=== PATIENT | female | born 1960 | race Caucasian/White ===

== ENCOUNTER → 2020-02-14 10:02 | Outpatient (CLI) | payer BC, SELFPAY ==
[2020-02-14 11:25] LABS: Add Manual Diff / Slide Review NO; Basophils Absolute Auto 100 /uL (0-100); Basophils Percent Auto 1.1 % (0-2); Eosinophils Absolute Auto 0 /uL (0-450); Eosinophils Percent Auto 0.7 % (2-4); Hemoglobin 15.6 g/dL (12.0-16.0); Lymphocytes Absolute Auto 1600 /uL (1100-4500); Lymphocytes Percent Auto 31.2 % (25-40); Mean Corpuscular HGB Conc 34.8 % (30-36); Mean Corpuscular Hemoglobin 31.3 PG (26-34); Mean Corpuscular Volume 90.1 fL (80-100); Monocytes Absolute Auto 400 /uL (0-900); Monocytes Percent Auto 8.1 % (3-14); Neutrophils Absolute Auto 3000 /uL (1500-7000); Neutrophils Percent Auto 58.9 % (50-75); Platelet Count 195 X10^3/uL (150-400); Red Blood Cell Count 4.99 X10^6/uL (4.0-5.2); Red Cell Distribution Width 12.9 % (11.6-14.8); White Blood Cell Count 5.1 X10^3/uL (4.5-11.0)
[2020-02-14 11:57] LABS: Alanine Aminotransferase 85 IU/L (<35); Albumin 4.6 g/dL (3.5-5.0); Albumin Globulin Ratio 1.4 (1.0-2.8); Alkaline Phosphatase 58 U/L (38-126); Aspartate Aminotransferase 72 IU/L (14-36); BUN Creatinine Ratio 31.5 (6-22); Bilirubin Total 0.9 mg/dL (0.2-1.3); Blood Urea Nitrogen 23 mg/dL (7-17); Calcium 10.4 mg/dL (8.4-10.2); Carbon Dioxide 29 mmol/L (22-32); Chloride 103 mmol/L (98-107); Cholesterol 113 mg/dL (140-199); Estimated Glomerular Filt Rate > 60.0 mL/min (>60); Globulin 3.3 g/dL (1.7-4.1); Glucose 95 mg/dL (80-110); HDL Cholesterol 54 mg/dL (40-60); HEMOLYSIS < 15 (0-50); LDL Cholesterol Calculated 51 mg/dL (<100); Potassium 3.9 mmol/L (3.4-5.1); Sodium 142 mmol/L (137-145); Total Protein 7.9 g/dL (6.3-8.2); Triglycerides 39 mg/dL (35-150)
== END ==
PROVIDERS: PCP Family Medicine; Referring Provider Family Medicine; Visit Provider Family Medicine
DX: E66.9 Obesity, unspecified (principal); I10 Essential (primary) hypertension; Z87.19 Personal history of other diseases of the digestive system; Z13.220 Encounter for screening for lipoid disorders
CPT/HCPCS: 36415; 80053; 80061; 84443; 85025

== ENCOUNTER → 2020-04-15 12:09 | Outpatient (CLI) | payer BC, SELFPAY ==
--- NOTE | 2020-04-15 12:10 | DI.MG.S_ITS ---
BILATERAL DIGITAL SCREENING MAMMOGRAM 3D/2D WITH CAD: 04/15/2020 CLINICAL: Routine screening. Family history of breast cancer. Comparison is made to exams dated: 06/09/2017 mammogram, 05/19/2016 mammogram, and 04/17/2015 mammogram - outside location. The tissue of both breasts is heterogeneously dense. This may lower the sensitivity of mammography. Current study was also evaluated with a Computer Aided Detection (CAD) system. No significant masses, calcifications, or other findings are seen in either breast. There has been no significant interval change. IMPRESSION: NEGATIVE There is no mammographic evidence of malignancy. A 1 year screening mammogram is recommended. This exam was interpreted at Station ID: [id number]. NOTE: For mammograms, a report in lay terms will be sent to the patient. Approximately 15% of breast malignancies will not be visualized mammographically. In the management of a palpable breast mass, a negative mammogram must not discourage biopsy of a clinically suspicious lesion. Electronically Signed By: Micah jurado/porfirio:04/15/2020 12:34:55 letter sent: Normal Exam ACR BI-RADS Category 1: Negative 3341F
== END ==
PROVIDERS: PCP Family Medicine; Referring Provider Family Medicine; Visit Provider Family Medicine
DX: Z12.31 Encounter for screening mammogram for malignant neoplasm of breast (principal); Z80.3 Family history of malignant neoplasm of breast
CPT/HCPCS: 77063; 77067

== ENCOUNTER → 2020-04-23 12:03 | Outpatient (CLI) | payer BC, SELFPAY ==
[2020-04-23 13:29] LABS: Alanine Aminotransferase 87 IU/L (<35); Albumin 4.6 g/dL (3.5-5.0); Albumin Globulin Ratio 1.5 (1.0-2.8); Alkaline Phosphatase 53 U/L (38-126); Aspartate Aminotransferase 72 IU/L (14-36); BUN Creatinine Ratio 24.7 (6-22); Bilirubin Total 0.9 mg/dL (0.2-1.3); Blood Urea Nitrogen 19 mg/dL (7-17); Calcium 10.3 mg/dL (8.4-10.2); Carbon Dioxide 32 mmol/L (22-32); Chloride 101 mmol/L (98-107); Estimated Glomerular Filt Rate > 60.0 mL/min (>60); Globulin 3.1 g/dL (1.7-4.1); Glucose 92 mg/dL (80-110); HEMOLYSIS < 15 (0-50); Potassium 4.3 mmol/L (3.4-5.1); Sodium 139 mmol/L (137-145); Total Protein 7.7 g/dL (6.3-8.2)
== END ==
PROVIDERS: PCP Family Medicine; Referring Provider Family Medicine; Visit Provider Family Medicine
DX: E83.52 Hypercalcemia (principal); R79.89 Other specified abnormal findings of blood chemistry; Z87.19 Personal history of other diseases of the digestive system
CPT/HCPCS: 36415; 80053

== ENCOUNTER → 2020-05-21 10:41 | Outpatient (CLI) | payer BC, SELFPAY ==
--- NOTE | 2020-05-21 10:42 | DI.US.S_ITS ---
PROCEDURE: US ABDOMEN LIMITED INDICATIONS: HISTORY OF LIVER CYSTS. ELEVATED LIVER ENZYMES TECHNIQUE: Real-time focused scanning was performed of the abdomen, with image documentation. COMPARISON: No prior relevant studies are available for review at the time of this dictation. FINDINGS: The liver demonstrates normal size. The liver demonstrates generalized increased echogenicity. This decreases ultrasound sensitivity for detection of hepatic masses. Multiple simple appearing hepatic cysts can be seen. The largest of these is seen within the right liver inferiorly measuring 6.4 x 5.3 x 7.2 cm. No abnormal vascularity can be seen involving these cysts. No findings of gallstones or sludge are seen. The gallbladder wall is not thickened, measuring 3 mm or less. No specific pericholecystic fluid is seen. The sonographic Ricks sign is negative. There is no biliary dilatation, the common bile duct measures 5 mm. No significant pancreatic abnormality is seen on these images. IMPRESSION: Simple appearing liver cysts are seen. No suspicious abnormality of the liver is seen by ultrasound. The liver demonstrates increased echogenicity. This finding is nonspecific, yet it is most commonly attributed to fatty infiltration. The gallbladder demonstrates a normal sonographic appearance. No biliary dilatation is seen. Dictated by: Donaldo Bright M.D. on 05/21/2020 at 11:04 Approved by: Donaldo Bright M.D. on 05/21/2020 at 11:05
== END ==
PROVIDERS: PCP Family Medicine; Referring Provider Family Medicine; Visit Provider Family Medicine
DX: K76.89 Other specified diseases of liver (principal); R74.8 Abnormal levels of other serum enzymes
CPT/HCPCS: 76705

== ENCOUNTER → 2021-05-14 10:56 | Outpatient (CLI) | payer BC, SELFPAY ==
--- NOTE | 2021-05-14 10:57 | DI.MG.S_ITS ---
BILATERAL DIGITAL SCREENING MAMMOGRAM 3D/2D WITH CAD: 05/14/2021 CLINICAL: Routine screening. Family history of breast cancer. Comparison is made to exams dated: 04/15/2020 mammogram - [facility], 06/09/2017 mammogram, and 05/19/2016 mammogram - outside location. The tissue of both breasts is heterogeneously dense. This may lower the sensitivity of mammography. Current study was also evaluated with a Computer Aided Detection (CAD) system. No significant masses, calcifications, or other findings are seen in either breast. There has been no significant interval change. IMPRESSION: NEGATIVE There is no mammographic evidence of malignancy. A 1 year screening mammogram is recommended. This exam was interpreted at Station ID: [id number]. NOTE: For mammograms, a report in lay terms will be sent to the patient. Approximately 15% of breast malignancies will not be visualized mammographically. In the management of a palpable breast mass, a negative mammogram must not discourage biopsy of a clinically suspicious lesion. Electronically Signed By: Lawson ocasio/porfirio:05/14/2021 13:09:53 letter sent: Normal Exam ACR BI-RADS Category 1: Negative 3341F
== END ==
PROVIDERS: PCP Family Medicine; Referring Provider Family Medicine; Visit Provider Family Medicine
DX: Z12.31 Encounter for screening mammogram for malignant neoplasm of breast (principal)
CPT/HCPCS: 77063; 77067

== ENCOUNTER → 2021-09-01 09:04 | Outpatient (CLI) | payer BC, SELFPAY ==
[2021-09-01 11:17] LABS: Alanine Aminotransferase 66 IU/L (<35); Albumin 4.2 g/dL (3.5-5.0); Albumin Globulin Ratio 1.4 (1.0-2.8); Alkaline Phosphatase 44 U/L (38-126); Aspartate Aminotransferase 44 IU/L (14-36); Bilirubin Total 0.4 mg/dL (0.2-1.3); Blood Urea Nitrogen 20 mg/dL (7-17); Calcium 9.8 mg/dL (8.4-10.2); Carbon Dioxide 29 mmol/L (22-32); Chloride 104 mmol/L (98-107); Cholesterol 111 mg/dL (140-199); Estimated Glomerular Filt Rate > 60.0 mL/min (>60); Glucose 94 mg/dL (80-110); HDL Cholesterol 59 mg/dL (40-60); HEMOLYSIS < 15 (0-50); LDL Cholesterol Calculated 43 mg/dL (<100); Potassium 4.1 mmol/L (3.4-5.1); Sodium 140 mmol/L (137-145); Total Protein 7.2 g/dL (6.3-8.2); Triglycerides 43 mg/dL (35-150)
[2021-09-01 11:35] LABS: TSH w/ Reflex to FT4 1.28 uIU/mL (0.47-4.68)
== END ==
PROVIDERS: PCP Family Medicine; Referring Provider Family Medicine; Visit Provider Family Medicine
DX: E66.9 Obesity, unspecified (principal); I10 Essential (primary) hypertension; Z87.19 Personal history of other diseases of the digestive system
CPT/HCPCS: 36415; 80053; 80061; 84443

== ENCOUNTER → 2021-09-07 13:53 | Outpatient (CLI) | payer BC, SELFPAY ==
--- NOTE | 2021-09-07 13:54 | DI.MG.S_ITS ---
UNILATERAL RIGHT DIGITAL DIAGNOSTIC MAMMOGRAM 3D/2D: 09/07/2021 CLINICAL: Right breast lump, now resolved. Comparison is made to exams dated: 05/14/2021 mammogram, 04/15/2020 mammogram - [facility], 06/09/2017 mammogram, and 05/19/2016 mammogram - outside location. The tissue of right breast is heterogeneously dense. This may lower the sensitivity of mammography. No significant masses, calcifications, or other findings are seen in the breast. IMPRESSION: NEGATIVE There is no mammographic evidence of malignancy. Return to screening mammogram is recommended. 05/15/2022. Exam findings were conveyed to the patient. Patient is advised to monitor for significant change. Clinical follow-up is recommended. This exam was interpreted at Station ID: [id number]. NOTE: For mammograms, a report in lay terms will be sent to the patient. Approximately 15% of breast malignancies will not be visualized mammographically. In the management of a palpable breast mass, a negative mammogram must not discourage biopsy of a clinically suspicious lesion. Electronically Signed By: Fabain Morris M.D. [facility]/:09/07/2021 14:52:39 letter sent: Normal Exam ACR BI-RADS Category 1: Negative 3341F
== END ==
PROVIDERS: PCP Family Medicine; Referring Provider Family Medicine; Visit Provider Family Medicine
DX: N63.10 Unspecified lump in the right breast, unspecified quadrant (principal)
CPT/HCPCS: 77065; G0279

== ENCOUNTER 2021-11-02 07:13 | Day surgery (SDC) | payer BC, SELFPAY ==
--- NOTE | 2021-11-02 | PATH_ITS ---
[facility] Accession Number: [id number] . 01 Material submitted: . body - POLYP @ 25CM . 02 Diagnosis: Colon, Polyp at 25 cm, Biopsy: Tubular adenoma. MRV 11/04/2021 1101 Local . 02 Electronically signed: . Lindsay Serrnao MD, Pathologist NPI- [id number] . 01 Gross description: . POLYP @ 25CM: Received in formalin is 1 fragment(s) of hutchinson, soft tissue measuring 0.4 x 0.3 x 0.3 cm submitted entirely in 1 cassette(s) /[facility] 11/03/2021 1923 Local . 02 Pathologist provided ICD-10: D12.6 . 02 CPT . 222852 Specimen Comment: A courtesy copy of this report has been sent to [phone], [phone] Specimen Comment: 2055 Performed at: 01 [facility] Cytology [address] [facility], [place], [place] [id number] MD Lawson Valenzuela MD Phone: [phone] Performed at: 02 [facility] [address] [place], [place] [id number] MD Lindsay Serrano MD Phone: [phone]
[2021-11-02 07:32] VITALS: BMI 30.2
[2021-11-02] MEDS: SODIUM CHLORIDE 0.9% 1,000 ML 84 ML IV (07:40)
[2021-11-02 07:41] VITALS: BP 141/93; PULSE 88; RESP 18; TEMP 37.2; O2SAT 95
[2021-11-02 07:48] LABS: COVID19 -Nasal RAPID Negative (Negative)
--- NOTE | 2021-11-02 08:01 | PM.HP.1 ---
History of Present Illness History of Present Illness Date Patient Seen: 11/02/21 Time Patient Seen: 08:01 Chief complaint: SDC Narrative: Patient states she may have had a polyp removed 5 years ago at colonoscopy. There is a family history of colon polyps in her dad. Patient History Medical History Anxiety (~2009) Basal cell carcinoma of face (~1999) Chicken pox Headache Hernia History of liver disease (~2009) Hypertension (~2003) Interstitial cystitis (~2016) Liver cyst (~2016) Obesity (BMI 30.0-34.9) Postmenopausal atrophic vaginitis Rosacea (~2009) Surgical History Anesthesia History of section (~1984) History of section (~1986) Family & Social History Family History Father Cancer Heart disease Hyperlipidemia Mother Hypertension Stroke Grandfather No problems noted. Grandmother No problems noted. Grandfather No problems noted. Grandmother Cancer Social History: household members spouse Tobacco & Substance use: Smoking Status Never smoker alcohol intake current alcohol intake frequency other Substance Use Type does not use Meds Home Medications and Allergies Home Medications Medication Instructions Recorded Confirmed Type aspirin 81 mg tablet,delayed 81 mg PO DAILY 05/08/18 11/02/21 History release (Adult Low Dose Aspirin) lorazepam 1 mg tablet 1 mg PO BEDTIME PRN #10 tab 02/14/20 11/02/21 Rx Estriol Vaginal Pearls 2mg See Rx Instructions .ROUTE 09/10/21 11/02/21 Rx .COMPLEX #30 day valsartan 160 See Rx Instructions .ROUTE 09/24/21 Rx mg-hydrochlorothiazide 12.5 mg .COMPLEX #90 tab tablet Allergies Allergy/AdvReac Type Severity Reaction Status Date / Time No Known Drug Allergies Allergy Verified 11/02/21 07:13 Review of Systems Review of Systems ROS: Yes All systems reviewed with the patient and are negative except as otherwise documented Exam Vital Signs (past 8 hours): - 11/02/21 07:41 Temperature 99 F Pulse Rate 88 Respiratory Rate 18 Blood Pressure 141/93 H Pulse Oximetry 95 Oxygen Delivery Method Room Air Const General: cooperative and comfortable Orientation: alert HENMT Head: normocephalic Ears: external ears normal Nose: external nose normal Face and sinus: normal facial exam Mouth: oral mucosae normal Eyes General: appearance normal, both eyes and all related structures Neck Neck: normal visual inspection Chest Chest: normal inspection of the chest Resp Effort & Inspection: normal respiratory effort Cardio Rate: regular rate GI Inspection: normal to inspection Skin General: no rashes or lesions noted and No jaundice Neuro General: patient alert and moves all extremities Cognition: normal cognition Speech: speech normal Extrem General: no pedal edema Psych Appearance: grossly normal Objective Labs Labs: Laboratory Results - last 24 hr 11/02/21 07:17 SARS-CoV-2 (PCR) Negative Assessment & Plan Assessment & Plan narrative: 61-year-old female with a family history of colon polyps in her dad and a personal history of a possible colon polyp removed 5 years ago. Colonoscopy is planned for today. Time Spent With Patient Critical Care time: I spent a total of [] minutes of critical care time on this patient's care today; this time is exclusive of procedural time.
--- NOTE | 2021-11-02 08:02 | PM.PREOP ---
Pre-operative Note COVID-19 COVID-19 status: Negative Result date/Date tested (Pos, Neg/Pending): 11/02/21 Criteria for continued procedure: Possibility delay results in more complex future surgery or treatment Interval Note History & Physical reviewed/Exam performed by Physician: Yes Changes to H&P: No ASA Class (for procedural sedation): II
--- NOTE | 2021-11-02 08:55 | P.OP.COLON_ITS ---
Operative Date/Time/Diagnoses Date of procedure: 11/02/21 Time of procedure: 08:55 Pre-op diagnosis: Family history of colon polyps and a personal history of colon polyp Post-op diagnosis: same Procedure & Clinicians Study performed: Colonoscopy with hot snare polypectomy Same procedure as scheduled: Yes Indications: Family history of colon polyps personal history of colon polyps Surgeon: Isaac Brannon Procedure Notes SCOAP/Timeout: Done Procedure in detail: After the risks and benefits were explained, written and verbal informed consent was obtained. The patient was brought into the procedure room and placed into the left lateral decubitus position. Please see nurse pen or pencil assembly machine operator notes for sedation details. Digital rectal examination was accomplished. The scope was introduced into the patient and advanced under direct visualization to the cecum as identified by the appendiceal orifice and ileocecal valve. The scope was slowly withdrawn to carefully examine the mucosa for any defects or lesions. Comprehensive imaging was accomplished throughout the rectum including the dentate line. The colon was decompressed, the scope was then removed from the patient who tolerated the procedure well. Bowel prep adequate Pediatric colonoscope Scope withdrawal time: 10 minutes Sedation minutes: 18 Complications: none Impression: There was moderate diverticulosis in the sigmoid colon. Patient had some grade 1 internal hemorrhoids with hypertrophied anal papillae. There was an approx imately 7 mm semi pedunculated polyp in the sigmoid colon removed with hot snare. No additional pathology was appreciated throughout. Endoscopic diagnosis 1. Colon polyp 2. Diverticulosis 3. Grade 1 hemorrhoids Post-procedure Plan for aftercare: 1. Await histopathology 2. Repeat colonoscopy 7 years. Disposition: PACU
[2021-11-02 08:56] VITALS: BP 125/83; PULSE 85; RESP 18; TEMP 36.1; O2SAT 97
[2021-11-02 09:01] VITALS: BP 130/80; PULSE 76; RESP 18; O2SAT 97
[2021-11-02 09:07] VITALS: BP 130/80; PULSE 83; RESP 16; O2SAT 98
[2021-11-02 09:11] VITALS: BP 139/91; PULSE 80; RESP 19; TEMP 36.2; O2SAT 97
[2021-11-02 09:18] VITALS: BP 142/88; PULSE 82; RESP 16; O2SAT 97
== END 2021-11-02 09:29 | disposition home or self-care (01) ==
PROVIDERS: PCP Family Medicine; Referring Provider Internal Medicine Gastroenterology; Visit Provider Internal Medicine Gastroenterology
PROC: 0DJD8ZZ Inspection of Lower Intestinal Tract, Via Natural or Artificial Opening Endoscopic (ICD-10-PCS; CPT 45378; principal; 2021-11-02 08:30)
DX: D12.5 Benign neoplasm of sigmoid colon (principal); Z12.11 Encounter for screening for malignant neoplasm of colon; K57.30 Diverticulosis of large intestine without perforation or abscess without bleeding; K64.0 First degree hemorrhoids; K62.89 Other specified diseases of anus and rectum; Z83.71 Family history of colonic polyps; Z20.822 Contact with and (suspected) exposure to COVID-19
CPT/HCPCS: 45385; 87635

== ENCOUNTER → 2022-11-22 10:46 | Outpatient (CLI) | payer BC, SELFPAY ==
--- NOTE | 2022-11-22 10:48 | DI.MG.S_ITS ---
BILATERAL DIGITAL SCREENING MAMMOGRAM 3D/2D WITH CAD: 11/22/2022 CLINICAL: Routine screening. Comparison is made to exams dated: 09/07/2021 mammogram, 05/14/2021 mammogram, 04/15/2020 mammogram - [facility], and 06/09/2017 mammogram - outside location. Both breasts are heterogeneously dense, which may obscure small masses (category c / 51-75% glandular tissue). Current study was also evaluated with a Computer Aided Detection (CAD) system. No significant masses, calcifications, or other findings are seen in either breast. There has been no significant interval change. IMPRESSION: NEGATIVE There is no mammographic evidence of malignancy. A 1 year screening mammogram is recommended. Based on the Tyrer Cuzick model (a risk assessment model) the patient's lifetime risk is 13.3% and her 10 year risk is 6.1%. According to the ACR, ACS, and NCCN guidelines, an annual breast MRI exam along with mammogram is recommended if the patient's lifetime risk is 20% or greater. This exam was interpreted at Station ID: [id number]. NOTE: For mammograms, a report in lay terms will be sent to the patient. Approximately 15% of breast malignancies will not be visualized mammographically. In the management of a palpable breast mass, a negative mammogram must not discourage biopsy of a clinically suspicious lesion. Electronically Signed By: Faraz tyler/porfirio:11/22/2022 11:54:06 letter sent: Normal Exam ACR BI-RADS Category 1: Negative 3341F
== END ==
PROVIDERS: PCP Family Medicine; Referring Provider Family Medicine; Visit Provider Family Medicine
DX: Z12.31 Encounter for screening mammogram for malignant neoplasm of breast (principal)
CPT/HCPCS: 77063; 77067

== ENCOUNTER → 2023-03-09 08:56 | Outpatient (CLI) | payer BC, SELFPAY ==
[2023-03-09 09:39] LABS: Add Manual Diff / Slide Review NO; Basophils Absolute Auto 0 /uL (0-100); Basophils Percent Auto 0.8 % (0-2); Eosinophils Absolute Auto 200 /uL (0-450); Eosinophils Percent Auto 2.8 % (2-4); Hematocrit 43.7 % (36-46); Lymphocytes Absolute Auto 1900 /uL (1100-4500); Lymphocytes Percent Auto 32.6 % (25-40); Mean Corpuscular HGB Conc 34.3 % (30-36); Mean Corpuscular Hemoglobin 30.9 PG (26-34); Mean Corpuscular Volume 90.1 fL (80-100); Monocytes Absolute Auto 500 /uL (0-900); Monocytes Percent Auto 7.9 % (3-14); Neutrophils Absolute Auto 3200 /uL (1500-7000); Neutrophils Percent Auto 55.9 % (50-75); Platelet Count 201 X10^3/uL (150-400); Red Blood Cell Count 4.85 X10^6/uL (4.0-5.2); Red Cell Distribution Width 12.9 % (11.6-14.8); White Blood Cell Count 5.8 X10^3/uL (4.5-11.0)
[2023-03-09 10:26] LABS: Alanine Aminotransferase 95 IU/L (<35); Albumin 4.2 g/dL (3.5-5.0); Albumin Globulin Ratio 1.4 (1.0-2.8); Alkaline Phosphatase 56 U/L (38-126); Aspartate Aminotransferase 59 IU/L (14-36); BUN Creatinine Ratio 25.8 (6-22); Bilirubin Total 0.8 mg/dL (0.2-1.3); Blood Urea Nitrogen 17 mg/dL (7-17); Calcium 9.3 mg/dL (8.4-10.2); Carbon Dioxide 31 mmol/L (22-32); Chloride 102 mmol/L (98-107); Cholesterol 115 mg/dL (140-199); Estimated Glomerular Filt Rate > 60 mL/min (>60); Globulin 3.1 g/dL (1.7-4.1); Glucose 101 mg/dL (80-110); HDL Cholesterol 66 mg/dL (40-60); HEMOLYSIS < 15 (0-50); LDL Cholesterol Calculated 42 mg/dL (<100); Potassium 3.8 mmol/L (3.4-5.1); Sodium 139 mmol/L (137-145); Total Protein 7.3 g/dL (6.3-8.2); Triglycerides 33 mg/dL (35-150)
[2023-03-09 10:55] LABS: TSH w/ Reflex to FT4 1.28 uIU/mL (0.47-4.68)
== END ==
PROVIDERS: PCP Physician Assistant; Referring Provider Physician Assistant; Visit Provider Physician Assistant
DX: I10 Essential (primary) hypertension (principal); Z87.19 Personal history of other diseases of the digestive system
CPT/HCPCS: 36415; 80053; 80061; 84443; 85025

== ENCOUNTER 2023-05-02 09:17 | Emergency (ER) | payer BC, SELFPAY ==
[2023-05-02] VITALS (9 sets, daily range): BP systolic 156–186; BP diastolic 83–94; PULSE 75–81; RESP 16–26; TEMP 36.5; O2SAT 94–97; BMI 28.3
--- NOTE | 2023-05-02 09:25 | DI.RAD.S_ITS ---
PROCEDURE: XR CHEST 1V INDICATIONS: chest pain TECHNIQUE: One view of the chest was acquired. COMPARISON: [facility], , XR CXR 2V, 03/27/2005, 16:11. FINDINGS: Surgical changes and devices: None. Lungs and pleura: An incomplete inspiratory result is noted, causing a crowded appearance to the lung markings. No focal infiltrates are seen. No pneumothorax or significant pleural effusions are seen. Mediastinum: Mediastinal contours appear normal. Heart size is normal. Bones and chest wall: No suspicious bony lesions. Age-appropriate bony degenerative changes are seen. Overlying soft tissues appear unremarkable. IMPRESSION: Portable chest within normal limits for age. Dictated by: Donaldo Bright M.D. on 05/02/2023 at 9:57 Approved by: Donaldo Bright M.D. on 05/02/2023 at 9:57
--- NOTE | 2023-05-02 09:37 | ED.GENADULT ---
HPI - General Adult General Chief complaint: Hypertension Stated complaint: high BP Time Seen by Provider: 05/02/23 09:24 Source: patient Mode of arrival: Ambulatory History of Present Illness HPI narrative: 63yoF with PMH HTN presents for elevated BP and midepigastric discomfort. [place] when she felt a punch under her lower ribcage the the radiated upwards. She checked her BP and it was elevated. Patient has hx HTN but does not regularly check her blood pressure. Currently asymptomati. Related Data Previous Rx's Medication Instructions Recorded valsartan 160 See Rx Instructions .Route 10/18/22 mg-hydrochlorothiazide 12.5 mg .COMPLEX #90 tabs tablet lorazepam 1 mg tablet 1 mg PO BEDTIME PRN anxiety #10 01/03/23 tabs valsartan 320 1 tab PO DAILY #30 tabs 05/02/23 mg-hydrochlorothiazide 25 mg tablet Allergies Allergy/AdvReac Type Severity Reaction Status Date / Time No Known Drug Allergies Allergy Verified 03/23/23 13:14 Review of Systems Review of Systems Narrative: Reports: midepigastric discomfort, resolved. Constitutional Constitutional: Reports system reviewed and no additional complaints, except as documented Gastrointestinal Comments: midepigastric discomfort, resolved. Patient History Medical History (Updated 05/02/23 @ 10:40 by Eli Escobar MD) Anxiety (~2009) Basal cell carcinoma of face (~1999) Chicken pox Fatty liver Headache Hernia Hypertension (~2003) Interstitial cystitis (~2016) Liver cyst (~2016) Obesity (BMI 30.0-34.9) Postmenopausal atrophic vaginitis Rosacea (~2009) Surgical History Anesthesia History of section (~1984) History of section (~1986) Family History Father Cancer Heart disease Hyperlipidemia Mother Hypertension Stroke Grandfather No problems noted. Grandmother No problems noted. Grandfather No problems noted. Grandmother Cancer Social History marital status: number of children: 2 household members: spouse education level: college occupational status: other Smoking Status: Never smoker alcohol intake: current substance use type: does not use Smoking Status: Never smoker alcohol intake frequency: a few times a week Alcohol type: wine Substance Use Type: does not use Exam Initial Vital Signs Initial Vital Signs: Vital Signs Temperature 97.7 F 05/02/23 09:26 Pulse Rate 81 05/02/23 09:26 Respiratory Rate 17 05/02/23 09:26 Blood Pressure 183/94 H 05/02/23 09:26 Pulse Oximetry 97 05/02/23 09:26 Oxygen Delivery Method Room Air 05/02/23 09:26 Const General: cooperative, healthy appearing, comfortable, well developed and well groomed Chest Chest: normal inspection of the chest, normal palpation of entire chest wall, No crepitus, No mass and No tenderness Resp Auscultation: clear to auscultation bilaterally and no crackles Cardio Rate: regular rate Rhythm: regular rhythm GI Inspection: normal to inspection Palpation: soft, no hepatosplenomegaly, No firm, No guarding, No hernia and No mass Course Course Course Narrative: Well appearing patient wtih abnormal abdominal sensation that has since resolved. Patient is primarily concerned with her blood pressure. BP elevated, however patient currently asymptomatic. Patient also does not regularly check her BP and she may well have chronic elevated BP. Orders Ordered: ED Orders 05/02/23 10:57 Trop I [Troponin I] Stat Reevaluation(s) Reevaluation #1: Troponin negative x2, all other labs normal. Patient cousneled of her results. Will increase her BP medications. Refill sent to pharmacy of choice. patient will call her PCP and will monitor her BP at home. ED return precautions discussed at bedside. Vital Signs Vital signs: Vital Signs - 8 hr 05/02/23 11:00 05/02/23 11:01 05/02/23 11:01 Pulse Rate 75 77 Respiratory Rate 23 Blood Pressure 170/94 H Pulse Oximetry 94 94 Oxygen Delivery Method 05/02/23 11:30 05/02/23 11:30 05/02/23 12:00 Pulse Rate 77 Respiratory Rate 25 H Blood Pressure 156/87 H 163/91 H Pulse Oximetry 94 Oxygen Delivery Method Room Air 05/02/23 12:00 Pulse Rate 75 Respiratory Rate 26 H Blood Pressure Pulse Oximetry 95 Oxygen Delivery Method Medical Decision Making Differential Diagnosis Differential Diagnosis: essential HTN, malignant HTN, anxiety Lab Data 05/02/23 09:35 05/02/23 09:35 Labs: Lab Results 05/02/23 05/02/23 05/02/23 Range/Units 09:35 09:35 09:35 WBC 7.7 (4.5-11.0) X10^3/uL RBC 4.93 (4.0-5.2) X10^6/uL Hgb 15.2 (12.0-16.0) g/dL Hct 44.1 (36-46) % MCV 89.5 (80-100) fL MCH 30.8 (26-34) PG MCHC 34.4 (30-36) % RDW 12.9 (11.6-14.8) % Plt Count 186 (150-400) X10^3/uL Neut % (Auto) 68.7 (50-75) % Lymph % (Auto) 23.4 L (25-40) % Hitchcock % (Auto) 6.0 (3-14) % Eos % (Auto) 1.5 L (2-4) % Baso % (Auto) 0.4 (0-2) % Neut # (Auto) 5300 (9492-4208) /uL Lymph # (Auto) 1800 (4522-8618) /uL Hitchcock # (Auto) 500 (0-900) /uL Eos # (Auto) 100 (0-450) /uL Baso # (Auto) 0 (0-100) /uL PT 11.8 (10.1-12.7) SECONDS INR 1.0 (0.9-1.3) APTT 34 (26-36) SECONDS Sodium 137 (137-145) mmol/L Potassium 3.6 (3.4-5.1) mmol/L Chloride 102 (98-107) mmol/L Carbon Dioxide 27 (22-32) mmol/L BUN 21 H (7-17) mg/dL Creatinine 0.62 (0.52-1.04) mg/dL Estimated GFR > 60 (>60) mL/min BUN/Creatinine Ratio 33.9 H (6-22) Glucose 104 (80-110) mg/dL Calcium 9.4 (8.4-10.2) mg/dL Magnesium 2.0 (1.6-2.3) mg/dL Total Bilirubin 0.6 (0.2-1.3) mg/dL AST 53 H (14-36) IU/L ALT 73 H (<35) IU/L Alkaline Phosphatase 54 (38-126) U/L Total Creatine Kinase 144 H (30-135) U/L Troponin I < 0.012 (0.01-0.034) ng/mL Total Protein 7.9 (6.3-8.2) g/dL Albumin 4.4 (3.5-5.0) g/dL Globulin 3.5 (1.7-4.1) g/dL Albumin/Globulin Ratio 1.3 (1.0-2.8) Lipase 115 (23-300) U/L 05/02/23 Range/Units 10:57 WBC (4.5-11.0) X10^3/uL RBC (4.0-5.2) X10^6/uL Hgb (12.0-16.0) g/dL Hct (36-46) % MCV (80-100) fL MCH (26-34) PG MCHC (30-36) % RDW (11.6-14.8) % Plt Count (150-400) X10^3/uL Neut % (Auto) (50-75) % Lymph % (Auto) (25-40) % Hitchcock % (Auto) (3-14) % Eos % (Auto) (2-4) % Baso % (Auto) (0-2) % Neut # (Auto) (9259-3093) /uL Lymph # (Auto) (5025-7861) /uL Hitchcock # (Auto) (0-900) /uL Eos # (Auto) (0-450) /uL Baso # (Auto) (0-100) /uL PT (10.1-12.7) SECONDS INR (0.9-1.3) APTT (26-36) SECONDS Sodium (137-145) mmol/L Potassium (3.4-5.1) mmol/L Chloride (98-107) mmol/L Carbon Dioxide (22-32) mmol/L BUN (7-17) mg/dL Creatinine (0.52-1.04) mg/dL Estimated GFR (>60) mL/min BUN/Creatinine Ratio (6-22) Glucose (80-110) mg/dL Calcium (8.4-10.2) mg/dL Magnesium (1.6-2.3) mg/dL Total Bilirubin (0.2-1.3) mg/dL AST (14-36) IU/L ALT (<35) IU/L Alkaline Phosphatase (38-126) U/L Total Creatine Kinase (30-135) U/L Troponin I < 0.012 (0.01-0.034) ng/mL Total Protein (6.3-8.2) g/dL Albumin (3.5-5.0) g/dL Globulin (1.7-4.1) g/dL Albumin/Globulin Ratio (1.0-2.8) Lipase (23-300) U/L Imaging Data Chest x-ray: My Impression: normal Radiologist's Impression: normal ECG Data Interpretation: sinus rhythm, no STEMI, normal KS, normal rate Discharge Plan Departure Patient Disposition: Home Clinical Impression: Hypertension Instructions: DI for High Blood Pressure Prescriptions: New valsartan-hydrochlorothiazide 320-25 mg tablet 1 tab PO DAILY Qty: 30 0RF No Action lorazepam 1 mg tablet 1 mg PO BEDTIME PRN (Reason: anxiety) Qty: 10 0RF Patient Comments: for airflights-last august valsartan-hydrochlorothiazide 160-12.5 mg tablet See Rx Instructions .ROUTE .COMPLEX Qty: 90 3RF Dose Instruction: TAKE 1 TABLET DAILY Rx Instructions: TAKE 1 TABLET DAILY Referrals: Shankar Almaguer DO [Primary Care Provider] - Stand Alone Forms: Patient Portal/API
[2023-05-02 09:44] LABS: Add Manual Diff / Slide Review NO; Basophils Absolute Auto 0 /uL (0-100); Basophils Percent Auto 0.4 % (0-2); Eosinophils Absolute Auto 100 /uL (0-450); Eosinophils Percent Auto 1.5 % (2-4); Hematocrit 44.1 % (36-46); Hemoglobin 15.2 g/dL (12.0-16.0); Lymphocytes Absolute Auto 1800 /uL (1100-4500); Lymphocytes Percent Auto 23.4 % (25-40); Mean Corpuscular HGB Conc 34.4 % (30-36); Mean Corpuscular Hemoglobin 30.8 PG (26-34); Mean Corpuscular Volume 89.5 fL (80-100); Monocytes Absolute Auto 500 /uL (0-900); Neutrophils Absolute Auto 5300 /uL (1500-7000); Neutrophils Percent Auto 68.7 % (50-75); Platelet Count 186 X10^3/uL (150-400); Red Blood Cell Count 4.93 X10^6/uL (4.0-5.2); Red Cell Distribution Width 12.9 % (11.6-14.8); White Blood Cell Count 7.7 X10^3/uL (4.5-11.0)
[2023-05-02 09:51] LABS: Prothrombin Time 11.8 SECONDS (10.1-12.7)
[2023-05-02 09:54] LABS: PTT Partial Thromboplastin Tim 34 SECONDS (26-36)
[2023-05-02 10:07] LABS: Alanine Aminotransferase 73 IU/L (<35); Albumin 4.4 g/dL (3.5-5.0); Albumin Globulin Ratio 1.3 (1.0-2.8); Alkaline Phosphatase 54 U/L (38-126); Aspartate Aminotransferase 53 IU/L (14-36); BUN Creatinine Ratio 33.9 (6-22); Bilirubin Total 0.6 mg/dL (0.2-1.3); Blood Urea Nitrogen 21 mg/dL (7-17); Calcium 9.4 mg/dL (8.4-10.2); Carbon Dioxide 27 mmol/L (22-32); Chloride 102 mmol/L (98-107); Creatine Kinase 144 U/L (30-135); Estimated Glomerular Filt Rate > 60 mL/min (>60); Globulin 3.5 g/dL (1.7-4.1); Glucose 104 mg/dL (80-110); HEMOLYSIS 22 (0-50); Lipase 115 U/L (23-300); Potassium 3.6 mmol/L (3.4-5.1); Sodium 137 mmol/L (137-145); Total Protein 7.9 g/dL (6.3-8.2)
[2023-05-02 10:18] LABS: Troponin I < 0.012 ng/mL (0.01-0.034)
--- NOTE | 2023-05-02 10:48 | PC.NURSE ---
Patient taking second dose fo her own BP meds per request from Dr. Escobar.
[2023-05-02 11:44] LABS: Troponin I < 0.012 ng/mL (0.01-0.034)
== END 2023-05-02 12:20 | disposition home or self-care (01) ==
PROVIDERS: Emergency Provider Emergency Medicine; PCP Family Medicine
DX: I10 Essential (primary) hypertension (principal); R07.9 Chest pain, unspecified; R10.13 Epigastric pain
CPT/HCPCS: 36415; 71045; 80053; 82550; 83690; 83735; 84484; 85025; 85610; 85730; 93005; 93010; 99284

== ENCOUNTER → 2023-07-14 15:14 | Outpatient (CLI) | payer BC, SELFPAY ==
--- NOTE | 2023-07-14 15:16 | DI.NM.S_ITS ---
PROCEDURE: NM EXERCISE TREADMILL NON NUC COMPARISON: None. INDICATIONS: atypical chest pain, HTN FINDINGS: The patient exercised for 9 minutes and 1 seconds reaching 101% of maximum predicted heart rate with good exercise tolerance (10.1METs, NORMAN -39%). Normal BP response to exercise. No ST changes, no ectopy, and no angina during exercise or recovery. IMPRESSION: Low risk, normal treadmill ECG only stress test with good exercise tolerance (NORMAN -39%). Dictated by: Yossi Ribeiro MD on 07/15/2023 at 13:45 Approved by: Yossi Ribeiro MD on 07/15/2023 at 13:47
== END ==
PROVIDERS: PCP Family Medicine; Referring Provider Family Medicine; Visit Provider Family Medicine
DX: R07.9 Chest pain, unspecified (principal); I10 Essential (primary) hypertension
CPT/HCPCS: 93017

== ENCOUNTER → 2023-11-24 12:55 | Outpatient (CLI) | payer OTHER, SELFPAY ==
--- NOTE | 2023-11-24 12:57 | DI.MG.S_ITS ---
BILATERAL DIGITAL SCREENING MAMMOGRAM 3D/2D WITH CAD: 11/24/2023 CLINICAL: Routine screening. Family history of breast cancer. Comparison is made to exams dated: 11/22/2022 mammogram, 09/07/2021 mammogram, 05/14/2021 mammogram, and 04/15/2020 mammogram - [facility]. Both breasts are heterogeneously dense, which may obscure small masses (category c / 51-75% glandular tissue). Current study was also evaluated with a Computer Aided Detection (CAD) system. No significant masses, calcifications, or other findings are seen in either breast. There has been no significant interval change. IMPRESSION: NEGATIVE There is no mammographic evidence of malignancy. A 1 year screening mammogram is recommended. Based on the Tyrer Cuzick model (a risk assessment model) the patient's lifetime risk is 12.8% and her 10 year risk is 6.1%. According to the ACR, ACS, and NCCN guidelines, an annual breast MRI exam along with mammogram is recommended if the patient's lifetime risk is 20% or greater. This exam was interpreted at Station ID: [id number]. NOTE: For mammograms, a report in lay terms will be sent to the patient. Approximately 15% of breast malignancies will not be visualized mammographically. In the management of a palpable breast mass, a negative mammogram must not discourage biopsy of a clinically suspicious lesion. Electronically Signed By: Faraz tyler/porfirio:11/24/2023 13:54:13 letter sent: Normal Exam ACR BI-RADS Category 1: Negative 3341F
== END ==
LOC: MAMMO 12:56
PROVIDERS: PCP Family Medicine; Referring Provider Family Medicine; Visit Provider Family Medicine
DX: Z12.31 Encounter for screening mammogram for malignant neoplasm of breast (principal); Z80.3 Family history of malignant neoplasm of breast; R92.333 Mammographic heterogeneous density, bilateral breasts
CPT/HCPCS: 77063; 77067

== ENCOUNTER → 2024-01-25 13:53 | Outpatient (CLI) | payer MEDICARE, OTHER, SELFPAY ==
[2024-01-25 14:34] LABS: Alanine Aminotransferase 91 IU/L (<35); Albumin 4.8 g/dL (3.5-5.0); Albumin Globulin Ratio 1.4 (1.0-2.8); Alkaline Phosphatase 52 U/L (38-126); Aspartate Aminotransferase 79 IU/L (14-36); BUN Creatinine Ratio 35.3 (6-22); Bilirubin Total 0.7 mg/dL (0.2-1.3); Blood Urea Nitrogen 24 mg/dL (7-17); Calcium 9.8 mg/dL (8.4-10.2); Carbon Dioxide 32 mmol/L (22-32); Chloride 104 mmol/L (98-107); Cholesterol 119 mg/dL (140-199); Estimated Glomerular Filt Rate > 60 mL/min (>60); Globulin 3.4 g/dL (1.7-4.1); Glucose 113 mg/dL (80-110); HEMOLYSIS < 15 (0-50); Potassium 3.8 mmol/L (3.4-5.1); Sodium 141 mmol/L (137-145); Total Protein 8.2 g/dL (6.3-8.2); Triglycerides 110 mg/dL (35-150)
[2024-01-25 14:50] LABS: HDL Cholesterol 65 mg/dL (40-60); LDL Cholesterol Calculated 32 mg/dL (<100)
[2024-01-26 15:51] LABS: HIV 1 & 2 Ab/Ag 4th Gen Combo NEGATIVE (NEGATIVE); Hep C Virus Ab w/Reflex Quant NEGATIVE s/c (NEGATIVE)
== END ==
PROVIDERS: PCP Family Medicine; Referring Provider Family Medicine; Visit Provider Family Medicine
DX: Z00.00 Encounter for general adult medical examination without abnormal findings (principal); K76.0 Fatty (change of) liver, not elsewhere classified; E66.9 Obesity, unspecified; I10 Essential (primary) hypertension; F41.1 Generalized anxiety disorder
CPT/HCPCS: 36415; 80053; 80061; 86803; 87389

== ENCOUNTER → 2024-12-14 15:05 | Outpatient (CLI) | payer MEDICARE, OTHER, SELFPAY ==
--- NOTE | 2024-12-14 15:07 | DI.MG.S_ITS ---
MM screening mammo BI: 12/14/2024. BI-RADS: 1 CLINICAL: 64-year old female for bilateral screening mammogram. Tyrer-Cuzick lifetime risk of 4.5%. No personal or first-degree family history of breast cancer. PRIOR EXAMS 11/24/2023, 11/22/2022, 09/07/2021, 05/14/2021, 04/15/2020. MAMMOGRAPHY TECHNIQUE: 2D and 3D (tomosynthesis) digital mammographic views obtained, with additional images as needed for full coverage. Current study was also evaluated with a Computer Aided Detection (CAD) system. DENSITY B. There are scattered areas of fibroglandular density. MAMMOGRAPHY FINDINGS Bilateral: No suspicious mass, asymmetry, microcalcification, or other abnormality seen. IMPRESSION: * No evidence of malignancy. RECOMMENDATIONS Bilateral * Annual screening mammography. OVERALL ASSESSMENT CATEGORY BI-RADS-1: Negative. [employer] recommends annual screening mammography beginning at age 40 for women with average risk of breast cancer. ELECTRONICALLY SIGNED: Pamela Altamirano M.D. on 12/17/2024 at 11:46:41 AM PT Interpreting Station ID: [id number]
== END ==
PROVIDERS: PCP Family Medicine; Referring Provider Family Medicine; Visit Provider Family Medicine
DX: Z12.31 Encounter for screening mammogram for malignant neoplasm of breast (principal)
CPT/HCPCS: 77063; 77067

== ENCOUNTER 2025-03-08 19:22 | Emergency (ER) | payer MEDICARE, OTHER, SELFPAY ==
[2025-03-08] VITALS (12 sets, daily range): BP systolic 126–167; BP diastolic 64–77; PULSE 69–88; RESP 18–26; TEMP 36.3; O2SAT 94–97; BMI 31.3
--- NOTE | 2025-03-08 19:24 | EKG_ITS ---
[address] [address] Test Date: 2025-03-08 Pat Name: Ivy Ramirez Department: Room: Gender: Female Residential Glazier: SHASHA : 1960 Requested By: Order Number: [id number] Reading MD: Donavan Sanchez MD Measurements Intervals [place] Rate: 84 P: 46 NE: 162 QRS: -54 QRSD: 90 T: 46 QT: 390 QTc: 460 Interpretive Statements Normal sinus rhythm Left anterior fascicular block Cannot rule out Inferior infarct (masked by fascicular block?) , age undetermined Anterior infarct , age undetermined NO SIGNIFICANT CHANGE FROM PRIOR TRACING Electronically Signed On 03-09-2025 8:41:03 PDT by Donavan Sanchez MD
--- NOTE | 2025-03-08 19:34 | ED.CHESTPAIN ---
HPI - Chest Pain General Chief Complaint: Chest Pain Stated Complaint: Hard time swallowing chest pain Time Seen by Provider: 03/08/25 19:25 History of Present Illness HPI narrative: 65-year-old female history of hypertension, fatty liver, obesity, venous insufficiency, general anxiety disorder with a negative stress test back in 07/14/2023 low risk with g normal treadmill EKG with good exercise tolerance patient presents with sore throat difficulty swallowing upper chest pain and back pain. Importance patient flew back from [place] been [place] school yesterday and was driving back in the passenger seat when this all happened 20 minutes ago prior to arrival here. Patient did not take anything for this prior to arrival. Other than what is stated 14 point review of system is negative. Related Data Previous Rx's ?Medication ?Instructions ?Recorded Subcutaneous Supplies Kit #12 ea 01/25/24 lorazepam 1 mg tablet 1 mg PO BEDTIME PRN anxiety #20 01/25/24 tabs semaglutide See Rx Instructions SUBCUT .weekly 01/25/24 #6 mL semaglutide (weight loss) 0.25 0.25 mg (0.5 mL) SUBCUT QWEEK #6 mL 03/15/24 mg/0.5 mL subcutaneous pen injector valsartan 320 1 tab PO DAILY blood pressure #90 01/23/25 mg-hydrochlorothiazide 25 mg tablet tabs Allergies Allergy/AdvReac Type Severity Reaction Status Date / Time No Known Drug Allergies Allergy Verified 01/25/24 13:06 Review of Systems Review of Systems ROS Unobtainable: All systems reviewed & are unremarkable except as noted in HPI and below Patient History Medical History (Updated 03/08/25 @ 23:55 by Donavan Brock DO) Encounter for subsequent annual wellness visit (AWV) in Medicare patient Fatty liver Hernia Postmenopausal atrophic vaginitis Obesity (BMI 30.0-34.9) Basal cell carcinoma of face (~1999) Rosacea (~2009) Anxiety (~2009) Headache Chicken pox Interstitial cystitis (~2016) Liver cyst (~2016) Hypertension (~2003) Surgical History Anesthesia History of section (~1986) History of section (~1984) Family History Father Cancer Heart disease Hyperlipidemia Mother Hypertension Stroke Grandfather No problems noted. Grandmother No problems noted. Grandfather No problems noted. Grandmother Cancer Social History marital status: number of children: 2 household members: spouse education level: college occupational status: other alcohol intake: current substance use type: does not use alcohol intake frequency: a few times a week Alcohol type: wine Exam Narrative Exam Narrative: GENERAL: [65] year old patient appears stated age. Well-developed patient, in mild distress. HEAD: Atraumatic. Normocephalic. EYES: Pupils equal round and reactive. Extraocular motions intact. No scleral icterus. No injection or drainage. ENT: Nose without bleeding, purulent drainage. Throat without erythema, tonsillar hypertrophy or exudate. Airway patent. NECK: Trachea midline. Non tender CARDIOVASCULAR: Regular rate and rhythm without murmurs, gallops, or rubs. RESPIRATORY: Clear to auscultation. Breath sounds equal bilaterally. No wheezes, rales, or rhonchi. GASTROINTESTINAL: Abdomen soft, non-tender, nondistended. EXTREMITIES: No edema or joint tenderness. BACK: Nontender without deformity or crepitance. No flank tenderness. NEURO: AOx3. SKIN: No rash or erythema of visible areas Initial Vital Signs Initial Vital Signs: Vital Signs Temperature 97.4 F L 03/08/25 19:33 Pulse Rate 88 03/08/25 19:33 Respiratory Rate 18 03/08/25 19:33 Blood Pressure 167/77 H 03/08/25 19:33 Pulse Oximetry 95 03/08/25 19:33 Oxygen Delivery Method Room Air 03/08/25 19:33 Scores HEART Score Heart Score history: Slightly Suspicious Heart Score EKG: Normal Heart Score Age: > or = 65 years old Heart Score risk factors: 1-2 risk factors Heart Score troponin: < or = to normal limit Heart Score Total: 3 Course Orders Ordered: ED Orders 03/08/25 19:24 EKG-12 Lead Stat 03/08/25 19:43 CT angio chest PE protocol Stat XR chest 1V Stat EKG-12 Lead Stat 03/08/25 19:51 Complete Blood Count AUTO DIFF Stat Comprehensive Metabolic Panel Stat Lipase Stat Magnesium Stat NT-proBNP (BNP-Adult 18+) Stat PTT Partial Thromboplastin Dat Stat Prothrombin Time INR Stat Troponin & CK Cardiac Panel Stat 03/08/25 22:35 Troponin I Stat Discontinued Medications Aspirin (Aspirin 81 Mg Chew Tab) 324 mg PO NOW ONE Stop: 03/08/25 19:25 Last Admin: 03/08/25 21:13 Dose: Not Given Documented By: Aspirin (Aspirin 81 Mg Chew Tab) 324 mg PO NOW ONE Stop: 03/08/25 19:44 Last Admin: 03/08/25 21:13 Dose: Not Given Documented By: Vital Signs Vital signs: Vital Signs - 8 hr 03/08/25 19:33 03/08/25 20:01 03/08/25 20:02 Temperature 97.4 F L Pulse Rate 88 80 Respiratory Rate 18 25 H Blood Pressure 167/77 H 150/72 H Pulse Oximetry 95 97 Oxygen Delivery Method Room Air Room Air 03/08/25 20:24 03/08/25 20:24 03/08/25 20:30 Temperature Pulse Rate 78 76 Respiratory Rate Blood Pressure 149/70 H Pulse Oximetry 97 94 Oxygen Delivery Method 03/08/25 20:30 03/08/25 21:00 03/08/25 21:00 Temperature Pulse Rate 74 Respiratory Rate 23 Blood Pressure 133/64 126/66 Pulse Oximetry 95 Oxygen Delivery Method 03/08/25 21:22 03/08/25 21:22 Temperature Pulse Rate 75 Respiratory Rate 22 Blood Pressure 137/66 Pulse Oximetry 96 Oxygen Delivery Method MDM - Chest Pain Lab Data 03/08/25 19:51 03/08/25 19:51 Labs: Lab Results 03/08/25 03/08/25 Range/Units 19:51 22:35 WBC 6.7 (4.5-11.0) X10^3/uL RBC 4.61 (4.0-5.2) X10^6/uL Hgb 14.5 (12.0-16.0) g/dL Hct 42.5 (36-46) % MCV 92.2 (80-100) fL MCH 31.4 (26-34) PG MCHC 34.0 (30-36) % RDW 13.4 (11.6-14.8) % Plt Count 176 (150-400) X10^3/uL Neut % (Auto) 59.6 (50-75) % Lymph % (Auto) 30.0 (25-40) % [place] % (Auto) 8.5 (3-14) % Eos % (Auto) 1.2 L (2-4) % Baso % (Auto) 0.7 (0-2) % Neut # (Auto) 4000 (6681-8668) /uL Lymph # (Auto) 2000 (4349-9530) /uL [place] # (Auto) 600 (0-900) /uL Eos # (Auto) 100 (0-450) /uL Baso # (Auto) 0 (0-100) /uL PT 12.6 H (9.4-12.5) SECONDS INR 1.1 (0.9-1.3) APTT 32 (25.1-36.5) SECONDS Sodium 140 (137-145) mmol/L Potassium 3.5 (3.4-5.1) mmol/L Chloride 103 (98-107) mmol/L Carbon Dioxide 26 (22-32) mmol/L BUN 27 H (7-17) mg/dL Creatinine 0.72 (0.52-1.04) mg/dL Estimated GFR > 60 (>60) mL/min BUN/Creatinine Ratio 37.5 H (6-22) Glucose 145 H (70-99) mg/dL Calcium 9.6 (8.4-10.2) mg/dL Magnesium 1.9 (1.6-2.3) mg/dL Total Bilirubin 0.7 (0.2-1.3) mg/dL AST 83 H (14-36) IU/L ALT 101 H (<35) IU/L Alkaline Phosphatase 48 (38-126) U/L Total Creatine Kinase 150 H (30-135) U/L Troponin I < 0.012 < 0.012 (0.01-0.034) ng/mL NT-Pro-B Natriuret Pep 32 (<125) pg/mL Total Protein 7.9 (6.3-8.2) g/dL Albumin 4.6 (3.5-5.0) g/dL Globulin 3.3 (1.7-4.1) g/dL Albumin/Globulin Ratio 1.4 (1.0-2.8) Lipase 141 (23-300) U/L Imaging Data Chest x-ray: Radiologist's Impression: [address] [address] XRay Report Signed Patient: Ivy Ramirez MR#: [id number] : 1960 Acct:[id number] Age/Sex: 65 / F Date of Service: 03/08/25 Loc: ED Accession Number: [id number] Procedure: XR chest 1V Ordering Provider: Donavan Brock D.O. PROCEDURE: XR CHEST 1V INDICATIONS: chest pain, difficulty swallowing TECHNIQUE: One view of the chest was acquired. COMPARISON: [facility], CR, XR CHEST 1V, 05/02/2023, 10:05. FINDINGS: Surgical changes and devices: None. Lungs and pleura: Linear right basilar opacity likely atelectasis. Mediastinum: Mediastinal contours appear normal. Heart size is minimally prominent. Unchanged right hemidiaphragm elevation. Bones and chest wall: No suspicious bony lesions. Overlying soft tissues appear unremarkable. IMPRESSION: No acute pulmonary process. CT scan - chest: Radiologist's Impression: [place] [address] CT Scan Report Signed Patient: Ivy Ramirez MR#: [id number] : 1960 Acct:[id number] Age/Sex: 65 / F Date of Service: 03/08/25 Loc: ED Accession Number: [id number] Procedure: CT angio chest PE protocol Ordering Provider: Donavan Brock D.O. PROCEDURE: CT ANGIO CHEST PE PROTOCOL INDICATIONS: chest pain sob/ just flew [place] from [place] TECHNIQUE: After the administration of intravenous contrast, 2 mm thick sections acquired from the pulmonary apices to the posterior costophrenic angles. 3-dimensional maximum intensity projection (MIP) coronal and sagittal reformats were then acquired through the thorax. For radiation dose reduction, the following was used: automated exposure control, adjustment of mA and/or kV according to patient size. COMPARISON: None. FINDINGS: Image quality: Diagnostic. Pulmonary arteries: Pulmonary arteries are normal in size, and demonstrate no intraluminal filling defects to suggest central pulmonary embolism. Lower Neck: No enlarged lymph nodes. Thyroid: No thyroid nodules which require sonographic follow up, per consensus guidelines. Axillae: No enlarged lymph nodes. Chest Wall: Unremarkable. Bones: Unremarkable. Lungs and Pleura: No pneumothorax or pleural effusions. No consolidation or suspicious nodules. Heart: Heart size is normal. No pericardial effusion. Thoracic Vessels: No aortic aneurysm. Mediastinum and Lizzy: No enlarged lymph nodes. Esophagus: No wall thickening. Mild hiatal hernia. Upper Abdomen: Multiple hepatic cysts. IMPRESSION: No pulmonary embolus. No acute cardiopulmonary process. ECG Data Interpretation: NSR HR 84 IN 162 QRS [address]-t wave change Unchanged from 05/02/23 [facility] Narrative Medical decision making narrative: Vital signs, nurse triage note, medication list, previous ER visits and all imaging study reviewed. Two sets troponins are negative. EKG showed normal sinus rhythm heart rate of [address] T wave changes. Heart score 3. CTA showed no PE no acute cardiopulmonary process. Differential diagnosis include anxiety, PE, GERD, STEMI, NSTEMI, unstable angina. Patient follow up with PCP next week for re-evaluation Discharge Plan Departure Patient Disposition: Home Clinical Impression: Chest pain Qualifiers: Chest pain type: chest pain on breathing Qualified Code(s): R07.1 - Chest pain on breathing Instructions: DI for Chest Pain Activity Restrictions/Additional Instructions: Return with new or worsening symptoms. Follow up with PCP on Tuesday for re-evaluation. Prescriptions: No Action semaglutide (weight loss) 0.25 mg/0.5 mL pen injector 0.25 mg SUBCUT QWEEK Qty: 6 3RF Rx Instructions: 0.25mg for 4 weeks, 0.5mg thereafter. Ok to compound at [facility] valsartan-hydrochlorothiazide 320-25 mg tablet 1 tab PO DAILY Qty: 90 0RF lorazepam 1 mg tablet 1 mg PO BEDTIME PRN (Reason: anxiety) Qty: 20 0RF Patient Comments: for airflights-last august semaglutide 1 mg/mL See Rx Instructions SUBCUT .weekly Qty: 6 5RF Rx Instructions: 0.25 mg subcut weekly x 4 weeks, then 0.5 mg subcut weekly (DME) Subcutaneous Supplies Kit See Rx Instructions .ROUTE .MEDSUPPLY Qty: 12 3RF Rx Instructions: As directed with semaglutide Referrals: Shankar Almaguer DO [Primary Care Provider, Family Practice] Stand Alone Forms: Patient Portal/API
--- NOTE | 2025-03-08 19:43 | DI.CT.S_ITS ---
PROCEDURE: CT ANGIO CHEST PE PROTOCOL INDICATIONS: chest pain sob/ just flew back [place] TECHNIQUE: After the administration of intravenous contrast, 2 mm thick sections acquired from the pulmonary apices to the posterior costophrenic angles. 3-dimensional maximum intensity projection (MIP) coronal and sagittal reformats were then acquired through the thorax. For radiation dose reduction, the following was used: automated exposure control, adjustment of mA and/or kV according to patient size. COMPARISON: None. FINDINGS: Image quality: Diagnostic. Pulmonary arteries: Pulmonary arteries are normal in size, and demonstrate no intraluminal filling defects to suggest central pulmonary embolism. Lower Neck: No enlarged lymph nodes. Thyroid: No thyroid nodules which require sonographic follow up, per consensus guidelines. Axillae: No enlarged lymph nodes. Chest Wall: Unremarkable. Bones: Unremarkable. Lungs and Pleura: No pneumothorax or pleural effusions. No consolidation or suspicious nodules. Heart: Heart size is normal. No pericardial effusion. Thoracic Vessels: No aortic aneurysm. Mediastinum and Lizzy: No enlarged lymph nodes. Esophagus: No wall thickening. Mild hiatal hernia. Upper Abdomen: Multiple hepatic cysts. IMPRESSION: No pulmonary embolus. No acute cardiopulmonary process. Dictated by: Keysha Mata M.D. on 03/08/2025 at 21:25 Approved by: Keysha Mata M.D. on 03/08/2025 at 21:25
--- NOTE | 2025-03-08 19:43 | DI.RAD.S_ITS ---
PROCEDURE: XR CHEST 1V INDICATIONS: chest pain, difficulty swallowing TECHNIQUE: One view of the chest was acquired. COMPARISON: [facility], CR, XR CHEST 1V, 05/02/2023, 10:05. FINDINGS: Surgical changes and devices: None. Lungs and pleura: Linear right basilar opacity likely atelectasis. Mediastinum: Mediastinal contours appear normal. Heart size is minimally prominent. Unchanged right hemidiaphragm elevation. Bones and chest wall: No suspicious bony lesions. Overlying soft tissues appear unremarkable. IMPRESSION: No acute pulmonary process. Dictated by: Keysha Mata M.D. on 03/08/2025 at 20:17 Approved by: Keysha Mata M.D. on 03/08/2025 at 20:18
[2025-03-08 19:58] LABS: Add Manual Diff / Slide Review NO; Hematocrit 42.5 % (36-46); Hemoglobin 14.5 g/dL (12.0-16.0); Lymphocytes Absolute Auto 2000 /uL (1100-4500); Mean Corpuscular HGB Conc 34.0 % (30-36); Mean Corpuscular Hemoglobin 31.4 PG (26-34); Mean Corpuscular Volume 92.2 fL (80-100); Platelet Count 176 X10^3/uL (150-400)
[2025-03-08 20:07] LABS: INR 1.1 (0.9-1.3); Prothrombin Time 12.6 SECONDS (9.4-12.5)
[2025-03-08 20:10] LABS: PTT Partial Thromboplastin Tim 32 SECONDS (25.1-36.5)
[2025-03-08 20:11] LABS: Alanine Aminotransferase 101 IU/L (<35); Albumin 4.6 g/dL (3.5-5.0); Albumin Globulin Ratio 1.4 (1.0-2.8); Alkaline Phosphatase 48 U/L (38-126); Blood Urea Nitrogen 27 mg/dL (7-17); Calcium 9.6 mg/dL (8.4-10.2); Carbon Dioxide 26 mmol/L (22-32); Chloride 103 mmol/L (98-107); Creatine Kinase 150 U/L (30-135); Estimated Glomerular Filt Rate > 60 mL/min (>60); Globulin 3.3 g/dL (1.7-4.1); Glucose 145 mg/dL (70-99); HEMOLYSIS 22 (0-50); Lipase 141 U/L (23-300); Magnesium 1.9 mg/dL (1.6-2.3); Potassium 3.5 mmol/L (3.4-5.1); Sodium 140 mmol/L (137-145); Total Protein 7.9 g/dL (6.3-8.2)
[2025-03-08 20:23] LABS: NT-proBNP (BNP-Adult 18+) 32 pg/mL (<125); Troponin I < 0.012 ng/mL (0.01-0.034)
--- NOTE | 2025-03-08 22:29 | EKG_ITS ---
[address] [address] Test Date: 2025-03-08 Pat Name: Ivy Ramirez Department: [facility] Room: Gender: Female Central Office Supervisor: TANYA : 1960 Requested By: Order Number: [id number] Reading MD: Donavan Sanchez MD Measurements Intervals [place] Rate: 71 P: 46 [place]: 176 QRS: -36 QRSD: 82 T: 17 QT: 440 QTc: 478 Interpretive Statements Normal sinus rhythm Left axis deviation Low voltage QRS Cannot rule out Anterior infarct , age undetermined Electronically Signed On 03-09-2025 8:41:17 PDT by Donavan Sanchez MD
[2025-03-08 23:46] LABS: Troponin I < 0.012 ng/mL (0.01-0.034)
== END 2025-03-09 00:06 | disposition home or self-care (01) ==
PROVIDERS: Emergency Provider Family Medicine; PCP Family Medicine
DX: R07.1 Chest pain on breathing (principal); J02.9 Acute pharyngitis, unspecified; M54.9 Dorsalgia, unspecified
CPT/HCPCS: 36415; 71045; 71275; 80053; 82550; 83690; 83735; 83880; 84484; 85025; 85610; 85730; 93005; 93010; 99283; 99284; Q9967

== ENCOUNTER → 2025-04-10 09:17 | Outpatient (CLI) | payer MEDICARE, OTHER, SELFPAY ==
[2025-04-10 10:16] LABS: Hemoglobin A1C% w Est Avg Glu 5.6 % (4.0-6.0)
[2025-04-10 10:26] LABS: Cholesterol 111 mg/dL (140-199); HDL Cholesterol 60 mg/dL (40-60); Triglycerides 44 mg/dL (35-150)
== END ==
PROVIDERS: PCP Family Medicine; Referring Provider Family Medicine; Visit Provider Family Medicine
DX: Z00.00 Encounter for general adult medical examination without abnormal findings (principal); R73.01 Impaired fasting glucose; I10 Essential (primary) hypertension; E66.9 Obesity, unspecified
CPT/HCPCS: 36415; 80061; 83036